=== PATIENT | female | born 1965 | race Caucasian/White ===

== ENCOUNTER → 2016-11-20 | Outpatient (CLI) | payer BC ==
[~2016-11-20] MED LIST: DIAZ5TAB3
--- NOTE | 2016-11-20 10:28 | Diagnostic Imaging Report ---
Left breast ultrasound. INDICATION: Nodule in the lateral aspect of the left breast. Findings: At 2:00 zone, 4 cm from the nipple there is a lobulated hypoechoic smoothly marginated mass wider than tall measuring 1.2 x 0.6 x 0.7 CM with no internal vascularity demonstrated. There is a minimal shadowing gas seen. This corresponds with the mammographic abnormality. IMPRESSION: Likely benign 1.2 cm hypoechoic nodule at 2:00 zone 4 cm from the nipple. This was seen on a baseline mammogram and no prior studies were available for comparison. Followup ultrasound in 4 months is recommended to ensure stability. BI-RADS 3. ACR BI-RADS Category 3: Probably benign findings. Dictated by: Dictated on workstation # [id number]
== END ==
LOC: RAD 08:40
PROVIDERS: ATTEND Family Medicine
DX: N63 Unspecified lump in breast (principal)
CPT/HCPCS: 76642

== ENCOUNTER 2017-01-02 14:06 | Emergency (ER) | payer BC ==
[~2017-01-02] VITALS: Ht 165.1 cm; Wt 154.7 kg
[2017-01-02] MEDS ORDERED: DIAZ5TAB3 (15:09)
--- NOTE | 2017-01-02 15:44 | ED General ---
General Chief Complaint: General Problems/Pain Stated Complaint: BLOOD TEST RESULT INDICATES D-DIMER/BLOOD CLOT Nursing Triage Note: pt reports she was called by her physicians nurse today about her d-dimer lab being high. pt reports she struggles with lymphedema in her bilateral legs and has some soa. pt denies any pain. Nursing Sepsis Screen: No Definite Risk Source of Information: Patient, Family Exam Limitations: No Limitations History of Present Illness Time Seen by Provider: 15:44 Initial Comments 51-year-old female patient presents to the emergency Department with reports of abnormal labs results today. States she was contacted by her PCP and instructed to come to the ED for an elevated D-Dimer. Patient reports chronic shortness of air, but denies increased shortness of air. Also reports chronic lymphedema to the proximal thighs bilaterally and states the swelling is similar to her usual swelling. denies chest pain, palpitations, fever, dizziness. Denies any acute symptoms. Denies pain. Allergies and Home Medications Allergies Coded Allergies: codeine (Verified Allergy, Unknown, 01/02/17) prochlorperazine (Verified Allergy, Unknown, 01/02/17) Home Medications Diazepam 5 Mg Tablet, (Reported) Constitutional: No chills, No diaphoresis, No dizziness, No fever, No malaise EENTM: no symptoms reported Respiratory: see HPI, No cough, dyspnea on exertion (chronic LUU, no different than usual LUU.), No orthopnea, phlegm (chronic clear sputum due to COPD per patient), short of breath (Chronic SOA, no different than usual symptoms.) Cardiovascular: No chest pain, edema (chronic edema bilaterally, similar to usual symptoms.), No palpitations, No syncope Gastrointestinal: no symptoms reported Genitourinary: no symptoms reported Musculoskeletal: no symptoms reported Skin: no symptoms reported Psychiatric/Neurological: No Symptoms Reported Hematologic/Lymphatic: No Symptoms Reported All Other Systems Reviewed Negative Unless Noted: Yes (Negative excepted noted.) Past Pozkkby-Wjphxg-Equamh Hx Patient Social History Alcohol Use: Denies Use Recreational Drug Use: No Smoking Status: Current Everyday Smoker Type Used: Cigarettes Recent Foreign Travel: No Contact w/Someone Who Travel: No Recent Infectious Disease Expo: No Physical Abuse: No Sexual Abuse: No Mistreated: No Fear: No Surgeries History of Surgeries: Yes Surgeries: Tonsillectomy Respiratory History of Respiratory Disorde: Yes Respiratory Disorders: Chronic Bronchitis Cardiovascular History of Cardiac Disorders: Yes Cardiac Disorders: Heart Murmur, High Cholesterol, Hypertension Neurological History of Neurological Disord: No Genitourinary History of Genitourinary Disor: Yes (chronic kidney dz ) Gastrointestinal History of Gastrointestinal Di: No Musculoskeletal History of Musculoskeletal Dis: No Endocrine History of Endocrine Disorders: Yes Endocrine Disorders: Hypothyroidsim HEENT History of HEENT Disorders: No Cancer History of Cancer: No Psychosocial History of Psychiatric Problem: No Suicide Risk Score: 0 Integumentary History of Skin or Integumenta: Yes (lymphedema) Blood Transfusions History of Blood Disorders: No Adverse Reaction to a Blood Tr: No Reviewed Nursing Assessment Reviewed/Agree w Nursing PMH: Yes Family Medical History Significant Family History: No Pertinent Family Hx Physical Exam Vital Signs Capillary Refill : Less Than 3 Seconds General Appearance: No Apparent Distress, WD/WN, Obese Eyes: Bilateral Eye Normal Inspection, Bilateral Eye PERRL, Bilateral Eye EOMI HEENT: PERRL/EOMI, Pharynx Normal Neck: Normal Inspection, Non Tender, Supple Respiratory: Chest Non Tender, No Accessory Muscle Use, No Respiratory Distress , Crackles, Expiration, Wheezing ((pt states "I always wheeze")) Cardiovascular: Regular Rate, Rhythm, No Murmur, Normal Peripheral Pulses, Other (3+ pedal edema bilat) Gastrointestinal: Normal Bowel Sounds, Non Tender, Soft Back: Normal Inspection Extremity: Normal Capillary Refill, Non Tender, No Calf Tenderness, Pedal Edema (3+ pedal edema bilat) Neurologic/Psychiatric: Alert, Oriented x3, Normal Mood/Affect Skin: Normal Color, Warm/Dry Progress/Results/Core Measures Results/Orders My Orders Medications Given in ED Vital Signs/I&O Blood Pressure Mean: 122 Diagnostic Imaging Diagonstic Imaging: CT Plain Films/CT/US/NM/MRI: chest Comments FINDINGS: The pulmonary arterial branches are widely patent. There is no intraluminal filling defect. There were no findings of PE. The thoracic aorta is patent and nonaneurysmal. There is no pleural or pericardial effusion. There is no pneumothorax. There are very slight perifissural atelectatic changes in the lung bases anteriorly, there are no findings suggestive of pneumonia. There is no acute soft tissue nor osseous chest wall pathology. The visualized upper abdomen nonacute. IMPRESSION: Negative for PE or other acute abnormalities. Dictated on workstation # [id number] Reviewed: Reviewed by Me (radiology report reviewed) Departure Communication (Admissions) Progress Notes All records including labs from earlier today reviewed from Dr. Hernandez's office. I did speak with Dr. Hernandez's [employer] who states patient CAN have the IV dye for the CT angio chest. I did discuss this with the patient. Patient voices understanding and states she wishes to proceed with CT angio chest. 1730 CT angio chest findings discussed with the patient. Plan for discharge to home with follow-up as an outpatient with Dr. Hernandez's office this week. Patient states she already has an appointment this week for follow-up. All return precautions were discussed with the patient as described in the discharge instructions of this report. Patient voices understanding and agrees with the treatment plan. Patient case discussed with Dr. Jang, he agrees with the plan of care. Impression Impression: Primary Impression: Abnormal laboratory test Additional Impressions: Chronic kidney disease (CKD) Qualified Codes: N18.9 - Chronic kidney disease, unspecified Chronic acquired lymphedema Disposition: HOME, SELF-CARE Condition: Improved Departure-Patient Inst. Decision time for Depature: 17:35 Referrals: DAYAMI HERNANDEZ DO (PCP/Family) Primary Care Physician Patient Instructions: Chronic Kidney Disease (DC) Add. Discharge Instructions: All discharge instructions reviewed with patient and/or family. Voiced understanding. Continue usual home medications. Continue usual home diet. Follow-up with Dr. Hernandez this week as previously scheduled. Return to the emergency department for worsened swelling, shortness of breath, chest pain, fever, or any other concerns. KULWINDER SCHUSTER Jan 02, 2017 15:44
[2017-01-02] MEDS ORDERED: CATHETER FLUSH 10 ML SYR IV PRN (16:00)
[2017-01-02] MEDS ORDERED: NS 100 ML (IVPB) BAG IV ONE (16:00)
[2017-01-02] MEDS ORDERED: IOHEXOL 350 MG/ML 150 ML (OMNIPAQUE 350) VIAL IV ONE (16:00)
--- NOTE | 2017-01-02 16:59 | Diagnostic Imaging Report ---
PROCEDURE: CT angiography of the chest with contrast. TECHNIQUE: Multiple contiguous axial images were obtained through the chest after uneventful bolus administration of intravenous contrast. Reconstructed CTA MIP acquisitions were also performed. INDICATION: Elevated d-dimer, cardiac murmur, valvular disease. FINDINGS: The pulmonary arterial branches are widely patent. There is no intraluminal filling defect. There were no findings of PE. The thoracic aorta is patent and nonaneurysmal. There is no pleural or pericardial effusion. There is no pneumothorax. There are very slight perifissural atelectatic changes in the lung bases anteriorly, there are no findings suggestive of pneumonia. There is no acute soft tissue nor osseous chest wall pathology. The visualized upper abdomen nonacute. IMPRESSION: Negative for PE or other acute abnormalities. Dictated by: Dictated on workstation # [id number]
[2017-01-02] MEDS ORDERED: NS IV 1000 ML 1,000 ML IV ONE (17:20)
[2017-01-02 17:51] VITALS: BP 140/74
== END 2017-01-02 17:51 | disposition home or self-care (01) ==
LOC: EDUNIT# 14:06 → ER 14:09
DX: R78.89 Finding of other specified substances, not normally found in blood (principal); I12.9 Hypertensive chronic kidney disease with stage 1 through stage 4 chronic kidney disease, or unspecified chronic kidney disease; N18.9 Chronic kidney disease, unspecified; I89.0 Lymphedema, not elsewhere classified; E03.9 Hypothyroidism, unspecified; E78.00 Pure hypercholesterolemia, unspecified; J42 Unspecified chronic bronchitis; F17.210 Nicotine dependence, cigarettes, uncomplicated; Z90.89 Acquired absence of other organs
CPT/HCPCS: 71275; 99281

== ENCOUNTER → 2017-01-13 | Outpatient (CLI) | payer BC ==
--- NOTE | 2017-01-13 16:06 | Diagnostic Imaging Report ---
INDICATION: Bilateral leg edema and pain and elevated d-dimer.. Bilateral lower extremity venous Doppler study was performed in the routine fashion with color flow Doppler and waveform analysis. FINDINGS: The common femoral veins, superficial femoral veins, popliteal veins and visualized portion of the tibial veins show normal compressibility and venous flow patterns. There is normal augmentation. Portions of the distal SFV were poorly seen on both sides due to body habitus. IMPRESSION: No evidence of deep vein thrombosis in the major veins of both legs. Dictated by: Dictated on workstation # [id number]
== END ==
LOC: RAD 14:42
PROVIDERS: ATTEND Family Medicine
DX: R60.0 Localized edema (principal); R79.89 Other specified abnormal findings of blood chemistry
CPT/HCPCS: 93970

== ENCOUNTER 2017-04-19 19:38 | Emergency (ER) | payer BC ==
[~2017-04-19] VITALS: Ht 165.1 cm; Wt 154.7 kg
[2017-04-19] MEDS ORDERED: BETA15CR37 (19:45)
[2017-04-19] MEDS ORDERED: GABA600T2 (19:45)
[2017-04-19] MEDS ORDERED: LEVO150T6 (19:45)
[2017-04-19] MEDS ORDERED: OMEP40CA36 (19:45)
[2017-04-19] MEDS ORDERED: BUDE10.2 (19:45)
[2017-04-19] MEDS ORDERED: CEPH500C (19:45)
[2017-04-19] MEDS ORDERED: FLUO40CA (19:45)
[2017-04-19] MEDS ORDERED: CARV12.53 (19:45)
[2017-04-19 20:12] LABS: BASOPHILS % (AUTO) 1 % (0-10); EOSINOPHILS # (AUTO) 0.2 10^3/uL (0.0-0.3); EOSINOPHILS % (AUTO) 7 % (0-10); LYMPHOCYTES % (AUTO) 29 % (12-44); MEAN CORPUSCULAR HEMOGLOBIN 30 PG (25-34); MEAN CORPUSCULAR HGB CONC 33 G/DL (32-36); MEAN CORPUSCULAR VOLUME 91 FL (80-99); MEAN PLATELET VOLUME 10.3 FL (7.4-10.4); MONOCYTES # (AUTO) 0.5 X 10^3 (0.0-1.0); MONOCYTES % (AUTO) 16 % (0-12); NEUTROPHILS # (AUTO) 1.6 X 10^3 (1.8-7.8); NEUTROPHILS % (AUTO) 48 % (42-75); PLATELET COUNT 148 10^3/uL (130-400); RED BLOOD COUNT 4.21 10^6/uL (4.35-5.85); RED CELL DISTRIBUTION WIDTH 16.1 % (10.0-14.5); WHITE BLOOD COUNT 3.3 10^3/uL (4.3-11.0)
[2017-04-19 20:13] LABS: PROTHROMBIN TIME PATIENT 12.9 SEC (12.2-14.7)
[2017-04-19 20:36] LABS: ALANINE AMINOTRANSFERASE 21 U/L (0-55); ALBUMIN 3.5 GM/DL (3.2-4.5); ALCOHOL 10 MG/DL (<10); AMMONIA 45 UMOL/L (11-32); ANION GAP 11 MMOL/L (5-14); ASPARTATE AMINO TRANSFERASE 36 U/L (5-34); BILIRUBIN,TOTAL 0.3 MG/DL (0.1-1.0); BLOOD UREA NITROGEN 39 MG/DL (7-18); BUN/CREATININE RATIO 14; CALCIUM 9.8 MG/DL (8.5-10.1); CARBON DIOXIDE 26 MMOL/L (21-32); CHLORIDE 97 MMOL/L (98-107); GFR ESTIMATED 18; GLUCOSE 86 MG/DL (70-105); MAGNESIUM 2.1 MG/DL (1.8-2.4); POTASSIUM 4.3 MMOL/L (3.6-5.0); SODIUM 134 MMOL/L (135-145); TOTAL PROTEIN 7.2 GM/DL (6.4-8.2)
[2017-04-19 20:40] LABS: ACETAMINOPHEN < 10 UG/ML (10-30)
[2017-04-19 20:42] LABS: BILIRUBIN,URINE NEGATIVE (NEGATIVE); KETONES,URINE NEGATIVE (NEGATIVE); LEUKOCYTE ESTERASE ,URINE NEGATIVE (NEGATIVE); NITRITE,URINE NEGATIVE (NEGATIVE); PH,URINE 6 (5-9); PROTEIN,URINE 2+ (NEGATIVE); UROBILINOGEN,URINE NORMAL (NORMAL)
[2017-04-19] MEDS ORDERED: NS IV 1000 ML 1,000 ML IV ONE (20:55)
--- NOTE | 2017-04-19 21:04 | Diagnostic Imaging Report ---
INDICATION: Confusion. EXAMINATION: CT head without contrast. FINDINGS: No intracranial hemorrhage, hydrocephalus, edema, mass or mass effect. The basilar cisterns are patent. The sulci are non-effaced. IMPRESSION: Negative. Dictated by: Dictated on workstation # [id number]
--- NOTE | 2017-04-19 21:06 | Diagnostic Imaging Report ---
INDICATION: Altered mental status FINDINGS: The lungs are clear. The heart and vessels normal. There is no effusion or pneumothorax. IMPRESSION: No acute appearing abnormality. Superimposition of body soft tissues limits the radiographic sensitivity. No acute finding evident. Dictated by: Dictated on workstation # [id number]
--- NOTE | 2017-04-19 21:10 | ED General ---
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 WHEN SHE DOES ANSWER QUESTIONS , THEY ARE APPROPRIATE AND PT DOES NOT APPEAR CONFUSED) History of Present Illness Time Seen by Provider: 19:38 Initial Comments PT ARRIVES VIA [facility] FROM HOME EMS REPORT THAT THEY WERE CALLED FOR "CONFUSION" X 3 DAYS EMS REPORT THAT THEY HAVE NOT SEEN ANY EVIDENCE OF CONFUSION AT ANY TIME DURING THEIR CARE OF THE PT TOLD THEM SHE " WAS TALKING OUT OF HER HEAD" FOR THE LAST 3 DAYS HE ALSO TOLD THEM SHE HAD NOT EATEN TODAY PT HAS CHRONIC CELLULITIS OF LEGS--PT STATES SHE HAD BEEN ON KEFLEX, BUT HAS BEEN OUT FOR 3-4 DAYS, AND HAS A PRESCRIPTION THAT IS TO BE REFILLED, BUT SHE HAS NOT PICKED IT UP FROM THE PHARMACY WHEN ASKED WHY SHE IS HERE, SHE STATES "BECAUSE MY SAYS I'M CRAZY" PT DOES NOT HAVE ANY ACUTE PHYSICAL COMPLAINTS ON ARRIVAL PCP; DR. HERNANDEZ WORDEN Allergies and Home Medications Allergies Coded Allergies: codeine (Verified Allergy, Unknown, 01/02/17) prochlorperazine (Verified Allergy, Unknown, 01/02/17) Home Medications Betamethasone/Propylene Glyc 15 Gm Cream..g., (Reported) Budesonide/Formoterol Fumarate 10.2 Gm Hfa.aer.ad, (Reported) Carvedilol 12.5 Mg Tablet, (Reported) Cephalexin 500 Mg Capsule, (Reported) Clindamycin HCl 300 Mg Capsule, 300 MG PO QID, #40 Prescribed by: FADY MARTINEZ on 04/19/172112 Diazepam 5 Mg Tablet, (Reported) Fluoxetine HCl 40 Mg Capsule, (Reported) Gabapentin 600 Mg Tablet, (Reported) Lactobacillus Acidophilus 1 Each Capsule, 2 EACH PO QID, #80 Prescribed by: FADY MARTINEZ on 04/19/172112 Levothyroxine Sodium 150 Mcg Tablet, (Reported) Omeprazole 40 Mg Capsule., (Reported) Constitutional: No fever Respiratory: No cough, dyspnea on exertion (CHRONIC/STABLE), No short of breath (CHRONIC SHORTNESS OF BREATH, BUT DENIES FEELING SHORT OF BREATH AT THIS TIME. ) Cardiovascular: No chest pain, edema (CHRONIC/STABLE) Gastrointestinal: No abdominal pain, No nausea, No vomiting Genitourinary: no symptoms reported Musculoskeletal: see HPI, other (CHRONIC LEG CELLULITIS) Skin: see HPI, other (CHRONIC LEG CELLULITIS) Psychiatric/Neurological: See HPI (BUT PT DOES NOT APPEAR CONFUSED), Denies Headache, Denies Numbness, Denies Paresthesia, Denies Seizure Hematologic/Lymphatic: No Symptoms Reported Immunological/Allergic: no symptoms reported Past Gbcqvoi-Khwsaa-Drdtzz Hx Patient Social History Alcohol Use: Denies Use Recreational Drug Use: No Smoking Status: Current Everyday Smoker Type Used: Cigarettes 2nd Hand Smoke Exposure: No Recent Foreign Travel: No Contact w/Someone Who Travel: No Recent Infectious Disease Expo: No Recent Hopitalizations: No Immunizations Up To Date Tetanus Booster (TDap): Unknown Seasonal Allergies Seasonal Allergies: Yes Surgeries History of Surgeries: Yes Surgeries: Tonsillectomy Respiratory History of Respiratory Disorde: Yes (CHRONIC DYSPNEA ON EXERTION) Respiratory Disorders: Chronic Bronchitis, COPD Cardiovascular History of Cardiac Disorders: Yes Cardiac Disorders: Chronic Edema/Swelling, Heart Murmur, High Cholesterol, Hypertension Neurological History of Neurological Disord: No Reproductive System : No 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 Genitourinary History of Genitourinary Disor: Yes (chronic kidney dz ) Genitourinary Disorders: Renal Failure Gastrointestinal History of Gastrointestinal Di: No Musculoskeletal History of Musculoskeletal Dis: Yes (CHRONIC LEG EDEMA/CELLULITIS) Endocrine History of Endocrine Disorders: Yes (MORBID OBESITY) Endocrine Disorders: Hypothyroidsim HEENT History of HEENT Disorders: No Cancer History of Cancer: No Psychosocial History of Psychiatric Problem: No Integumentary History of Skin or Integumenta: Yes (LYMPHEDEMA/ CHRONIC LEG EDEMA WITH CELLULITIS) Blood Transfusions History of Blood Disorders: No Adverse Reaction to a Blood Tr: No Family Medical History Significant Family History: No Pertinent Family Hx Physical Exam Vital Signs Vital Sign - Last 12Hours 04/19/17 19:45 Temp 97.7 Pulse 80 Resp 18 B/P (MAP) 133/89 (104) Pulse Ox 94 O2 Delivery Room Air Capillary Refill : Less Than 3 Seconds General Appearance: Obese (MORBIDLY), Other (FILTHY, VERY MALODOROUS. PT VERY LOUDLY TALKING NON-STOP AT LENGTH--COMPLAINING ABOUT EVERYTHING AND CONSTANTLY MAKING MULTIPLE DEMANDS, SINCE ARRIVAL, WHILE STILL ON EMS CART--WANTING BED ADJUSTED, C/O ROUGNESS OF TRANSFER FROM EMS CART TO ER CART, WANTING SOMETHING TO DRINK, ETC. ) HEENT: PERRL/EOMI, Other (ORAL MUCOSA SLIGHTLY DRY) Respiratory: Normal Breath Sounds, No Accessory Muscle Use, No Respiratory Distress Cardiovascular: Regular Rate, Rhythm Gastrointestinal: Non Tender, Soft Extremity: Other (LEGS WITH 4+ EDEMA BILATERALLY, WITH CHRONIC VENOUS STASIS CHANGES TO LEGS BILATERALLY, WITH CHRONIC -APPEARING ERYTHEMA TO LEGS BILATERALLY . DISTAL MOTOR/SENSORY INTACT, UNABLE TO PALPATE PULSES DUE TO EDEMA / BODY HABITUS, BUT FEET PINK/WARM/DRY. SOCKS FILTHYY. 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 Norm as Tested, Other (NO EVIDENCE OF CONFUSION, SPEECH IS APPROPRIATE AND ) Skin: Warm/Dry, Other (CHRONIC CHANGES TO BILATERAL LEGS) Progress/Results/Core Measures Suspected Sepsis Recent Fever Within 48 Hours: No Infection Criteria Present: Documented Infection New/Unexplained Altered Menta: Yes Sepsis Screen: No Definite Risk Sepsis Diagnosis: SIRS Temperature:97.7 Pulse: 80 Respiratory Rate: 18 Laboratory Tests 04/19/17 19:45: White Blood Count 3.3L Blood Pressure 133 /89 Mean: 104 Laboratory Tests 04/19/17 19:45: INR Comment 1.0, Platelet Count 148 04/19/17 20:08: Creatinine 2.80H, Total Bilirubin 0.3 Results/Orders Lab Results Laboratory Tests Test 04/19/17 19:45 04/19/17 20:08 04/19/17 20:13 04/19/17 20:30 Range/Units White Blood Count 3.3 L 4.3-11.0 10^3/uL Red Blood Count 4.21 L 4.35-5.85 10^6/uL Hemoglobin 12.5 11.5-16.0 G/DL Hematocrit 38 35-52 % Mean Corpuscular Volume 91 80-99 FL Mean Corpuscular Hemoglobin 30 25-34 PG Mean Corpuscular Hemoglobin Concent 33 32-36 G/DL Red Cell Distribution Width 16.1 H 10.0-14.5 % Platelet Count 148 130-400 10^3/uL Mean Platelet Volume 10.3 7.4-10.4 FL Neutrophils (%) (Auto) 48 42-75 % Lymphocytes (%) (Auto) 29 12-44 % Monocytes (%) (Auto) 16 H 0-12 % Eosinophils (%) (Auto) 7 0-10 % Basophils (%) (Auto) 1 0-10 % Neutrophils # (Auto) 1.6 L 1.8-7.8 X 10^3 Lymphocytes # (Auto) 1.0 1.0-4.0 X 10^3 Monocytes # (Auto) 0.5 0.0-1.0 X 10^3 Eosinophils # (Auto) 0.2 0.0-0.3 10^3/uL Basophils # (Auto) 0.0 0.0-0.1 10^3/uL Prothrombin Time 12.9 12.2-14.7 SEC INR Comment 1.0 0.8-1.4 Activated Partial Thromboplast Time 34 24-35 SEC Sodium Level 134 L 135-145 MMOL/L Potassium Level 4.3 3.6-5.0 MMOL/L Chloride Level 97 L 98-107 MMOL/L Carbon Dioxide Level 26 21-32 MMOL/L Anion Gap 11 5-14 MMOL/L Blood Urea Nitrogen 39 H 7-18 MG/DL Creatinine 2.80 H 0.60-1.30 MG/DL Estimat Glomerular Filtration Rate 18 BUN/Creatinine Ratio 14 Glucose Level 86 70-105 MG/DL Calcium Level 9.8 8.5-10.1 MG/DL Magnesium Level 2.1 1.8-2.4 MG/DL Total Bilirubin 0.3 0.1-1.0 MG/DL Aspartate Amino Transf (AST/SGOT) 36 H 5-34 U/L Alanine Aminotransferase (ALT/SGPT) 21 0-55 U/L Alkaline Phosphatase 91 40-136 U/L Ammonia 45 H 11-32 UMOL/L Total Protein 7.2 6.4-8.2 GM/DL Albumin 3.5 3.2-4.5 GM/DL TSH [place] Testing 0.73 0.35-4.94 UIU/ML Acetaminophen Level < 10 L 10-30 UG/ML Serum Alcohol 10 <10 MG/DL Glucometer 81 70-110 MG/DL Urine Color YELLOW Urine Clarity CLEAR Urine pH 6 5-9 Urine Specific [place] 1.015 L 1.016-1.022 Urine Protein 2+ H NEGATIVE Urine Glucose (UA) NEGATIVE NEGATIVE Urine Ketones NEGATIVE NEGATIVE Urine Nitrite NEGATIVE NEGATIVE Urine Bilirubin NEGATIVE NEGATIVE Urine Urobilinogen NORMAL NORMAL MG/DL Urine Leukocyte Esterase NEGATIVE NEGATIVE Urine RBC (Auto) 3+ H NEGATIVE Urine RBC 2-5 H /HPF Urine WBC NONE /HPF Urine Squamous Epithelial Cells 2-5 /HPF Urine Crystals NONE /LPF Urine Bacteria NONE /HPF Urine Casts NONE /LPF Urine Mucus NEGATIVE /LPF Urine Culture Indicated NO Urine Opiates Screen NEGATIVE NEGATIVE Urine Oxycodone Screen NEGATIVE NEGATIVE Urine Methadone Screen NEGATIVE NEGATIVE Urine Propoxyphene Screen NEGATIVE NEGATIVE Urine Barbiturates Screen NEGATIVE NEGATIVE Ur Tricyclic Antidepressants Screen NEGATIVE NEGATIVE Urine Phencyclidine Screen NEGATIVE NEGATIVE Urine Amphetamines Screen NEGATIVE NEGATIVE Urine Methamphetamines Screen NEGATIVE NEGATIVE Urine Benzodiazepines Screen POSITIVE H NEGATIVE Urine Cocaine Screen NEGATIVE NEGATIVE Urine Cannabinoids Screen NEGATIVE NEGATIVE My Orders Orders - FADY MARTINEZ DO Accucheck Stat ONCE (04/19/17 19:43) Saline Lock/Iv-Start (04/19/17 19:43) Ekg Tracing (04/19/17 19:43) Monitor-Rhythm Ecg Trace Only (04/19/17 19:43) Ct Head Wo-R/O Stroke (04/19/17 19:43) Acetaminophen (04/19/17 19:43) Alcohol (04/19/17 19:43) Ammonia (04/19/17 19:43) Cbc With Automated Diff (04/19/17 19:43) Comprehensive Metabolic Panel (04/19/17 19:43) Drug Screen Stat (Urine) (04/19/17 19:43) Magnesium (04/19/17 19:43) Protime With Inr (04/19/17 19:43) Partial Thromboplastin Time (04/19/17 19:43) Thyroid Analyzer (04/19/17 19:43) Ua Culture If Indicated (04/19/17 19:43) Blood Culture (04/19/17 19:43) Chest 1 View, Ap/Pa Only (04/19/17 19:43) Catheter(Urinary) Insert & Ass 03,15 (04/19/17 20:17) Saline Lock/Iv-Start (04/19/17 20:55) Ns Iv 1000 Ml (Sodium Chloride 0.9%) (04/19/17 20:55) Clindamycin Injection (Cleocin Injection (04/19/17 21:15) Clindamycin Injection (Cleocin Injection (04/19/17 21:11) Ns (Ivpb) (Sodium Chloride 0.9% Ivpb Bag (04/19/17 21:12) Medications Given in ED Current Medications Medications Dose Ordered Sig/Delmis Route Start Time Stop Time Status Last Admin Dose Admin Clindamycin Phosphate 900 mg/ Sodium Chloride 56 ml @ 100 mls/hr ONCE ONCE IV 04/19/17 21:15 04/19/17 21:48 DC 04/19/17 21:16 100 MLS/HR Sodium Chloride 1,000 ml @ 0 mls/hr Q0M ONCE IV 04/19/17 20:55 04/19/17 21:16 DC 04/19/17 21:03 0 MLS/HR Vital Signs/I&O Vital Sign - Last 12Hours 04/19/17 04/19/17 19:45 21:56 Temp 97.7 97.9 Pulse 80 75 Resp 18 15 B/P (MAP) 133/89 (104) Pulse Ox 94 98 O2 Delivery Room Air Room Air Capillary Refill : Less Than 3 Seconds Blood Pressure Mean: 104 Point of Care Testing Finger Stick Blood Glucose: 81 Blood Glucose Action Taken: RN AND DR NOTIFIED Progress Note : Progress Note NO DETERIORATION IN PT'S CONDITION DURING ER STAY NO EVIDENCE OF CONFUSION AT ANY TIME. PT COMFORTABLE GOING HOME, AND HAS NO COMPLAINTS DURING ER STAY Diagnostic Imaging Comments CT HEAD--NO ACUTE PROCESS CXR--NO ACUTE PROCESS PER RADIOLOGIST REPORTS @ 2105 Reviewed: Reviewed by Me Departure Impression Impression: Primary Impression: CHRONIC CELLULITIS OF BILATERAL LEGS Additional Impressions: Chronic renal failure Morbid obesity Disposition: 01 HOME, SELF-CARE Condition: Stable Departure-Patient Inst. Referrals: DAYAMI HERNANDEZ DO (PCP/Family) Primary Care Physician Patient Instructions: Cellulitis (Skin Infection), Adult (DC) Add. Discharge Instructions: CONTINUE YOUR CURRENT MEDICATIONS FOLLOW UP WITH DR. HERNANDEZ IN 2-3 DAYS FOR FURTHER CARE All discharge instructions reviewed with patient and/or family. Voiced understanding. Scripts Clindamycin HCl (Clindamycin HCl) 300 Mg Capsule 300 MG PO QID for FOR INFECTION, #40 CAP Prov: FADY MARTINEZ DO 04/19/17 Lactobacillus Acidophilus (Acidophilus) 1 Each Capsule 2 EACH PO QID, #80 CAP Prov: MICHELLE,FADY K DO 04/19/17 FADY MARTINEZ DO Apr 19, 2017 21:10
[2017-04-19] MEDS ORDERED: CLINDAMYCIN 600 MG/4ML (CLEOCIN) VIAL ONE (21:11)
[2017-04-19] MEDS ORDERED: NS (IVPB) 50 ML ONE (21:12)
[2017-04-19] MEDS ORDERED: LACT1CAP8 PO (21:13)
[2017-04-19] MEDS ORDERED: CLIN300C11 PO (21:13)
[2017-04-19] MEDS ORDERED: CLINDAMYCIN INJECTION 900 MG in NS (IVPB) 50 ML IV ONE (21:15)
[2017-04-19 21:56] VITALS: BP 116/66
== END 2017-04-19 21:56 | disposition home or self-care (01) ==
LOC: EDUNIT# 19:38 → ER 19:40
DX: L03.115 Cellulitis of right lower limb (principal); L03.116 Cellulitis of left lower limb; I12.9 Hypertensive chronic kidney disease with stage 1 through stage 4 chronic kidney disease, or unspecified chronic kidney disease; N18.9 Chronic kidney disease, unspecified; E66.01 Morbid (severe) obesity due to excess calories; J44.9 Chronic obstructive pulmonary disease, unspecified; E78.00 Pure hypercholesterolemia, unspecified; E03.9 Hypothyroidism, unspecified; F17.210 Nicotine dependence, cigarettes, uncomplicated; Z90.89 Acquired absence of other organs; Z68.43 Body mass index [BMI] 50.0-59.9, adult
CPT/HCPCS: 36415; 51702; 70450; 71010; 80053; 80306; 80320; 80329; 81000; 82140; 82962; 83735; 84443; 85025; 85610; 85730; 87040; 93005; 93041; 96361; 96365

== ENCOUNTER 2017-06-02 13:00 | Outpatient (RCR) | payer BC ==
[2017-06-05 13:06] LABS: BILIRUBIN,URINE NEGATIVE (NEGATIVE); CLARITY,URINE SLIGHTLY CLOUDY; COLOR,URINE AMBER; GLUCOSE, URINE (UA) NEGATIVE (NEGATIVE); KETONES,URINE NEGATIVE (NEGATIVE); LEUKOCYTE ESTERASE ,URINE 1+ (NEGATIVE); NITRITE,URINE NEGATIVE (NEGATIVE); PH,URINE 6 (5-9); PROTEIN,URINE NEGATIVE (NEGATIVE); UROBILINOGEN,URINE 1 MG/DL (NORMAL)
[2017-06-05 13:21] LABS: BACTERIA,URINE NEGATIVE /HPF; CALCIUM OXALATE CRYSTALS,UR FEW /LPF; RBC,URINE RARE /HPF; WBC,URINE 0-2 /HPF
== END 2017-08-31 | disposition home or self-care (01) ==
LOC: LAB 13:00
PROVIDERS: ATTEND Internal Medicine Nephrology
DX: I89.0 Lymphedema, not elsewhere classified (principal); N18.3 Chronic kidney disease, stage 3 (moderate)
CPT/HCPCS: 81000; 82570; 84156

== ENCOUNTER → 2017-06-02 | Outpatient (CLI) | payer BC ==
[~2017-06-02] MED LIST changes: +BETA15CR37; +BUDE10.2; +CARV12.53; +CEPH500C; +CLIN300C11 PO; +FLUO40CA; +GABA600T2; +LACT1CAP8 PO; +LEVO150T6; +OMEP40CA36
--- NOTE | 2017-06-02 14:00 | Diagnostic Imaging Report ---
INDICATION: Acute renal failure. FINDINGS: The right kidney measures 10.0 x 3.6 x 6.3 cm and the left kidney measures 10.5 x 4.4 x 4.4 cm. There does appear to be cortical renal thinning bilaterally. No calculi are seen. There is no hydronephrosis. Partially filled urinary bladder is unremarkable although ureteral jets were not visualized. Note is made of multiple stones within the gallbladder. No bladder wall does appear to be slightly thickened at 5 mm. IMPRESSION: 1. Bilateral cortical renal thinning. 2. Cholelithiasis and mild gallbladder wall thickening. Acute cholecystitis cannot be entirely excluded. Dictated by: Dictated on workstation # [id number]
--- NOTE | 2017-06-02 14:09 | Diagnostic Imaging Report ---
INDICATION: Acute renal failure. FINDINGS: Imaging of the bladder was performed. Prevoid bladder volume is 102 mL. Post void volume is 90 mL. No definite wall thickening or mass is seen. IMPRESSION: Small postvoid residual bladder volume. Dictated by: Dictated on workstation # [id number]
[2017-06-02 14:20] LABS: BASOPHILS % (AUTO) 0 % (0-10); EOSINOPHILS # (AUTO) 0.1 10^3/uL (0.0-0.3); EOSINOPHILS % (AUTO) 1 % (0-10); HEMATOCRIT 40 % (35-52); HEMOGLOBIN 12.9 G/DL (11.5-16.0); LYMPHOCYTES # (AUTO) 1.5 X 10^3 (1.0-4.0); LYMPHOCYTES % (AUTO) 20 % (12-44); MEAN CORPUSCULAR HEMOGLOBIN 29 PG (25-34); MEAN CORPUSCULAR HGB CONC 32 G/DL (32-36); MEAN CORPUSCULAR VOLUME 91 FL (80-99); MONOCYTES # (AUTO) 0.6 X 10^3 (0.0-1.0); MONOCYTES % (AUTO) 8 % (0-12); NEUTROPHILS # (AUTO) 5.5 X 10^3 (1.8-7.8); NEUTROPHILS % (AUTO) 71 % (42-75); PLATELET COUNT 262 10^3/uL (130-400); RED BLOOD COUNT 4.41 10^6/uL (4.35-5.85); WHITE BLOOD COUNT 7.8 10^3/uL (4.3-11.0)
[2017-06-02 14:40] LABS: ALBUMIN 3.8 GM/DL (3.2-4.5); CALCIUM 9.9 MG/DL (8.5-10.1); CREATININE SERUM 1.03 MG/DL (0.60-1.30); PHOSPHORUS 2.9 MG/DL (2.3-4.7); POTASSIUM 4.3 MMOL/L (3.6-5.0); URIC ACID 5.7 MG/DL (2.6-7.2)
== END ==
LOC: RAD 10:52
PROVIDERS: ATTEND Internal Medicine Nephrology
DX: N17.9 Acute kidney failure, unspecified (principal); K80.20 Calculus of gallbladder without cholecystitis without obstruction; N28.89 Other specified disorders of kidney and ureter; K82.8 Other specified diseases of gallbladder; N39.43 Post-void dribbling; I10 Essential (primary) hypertension
CPT/HCPCS: 36415; 76770; 76857; 80069; 82306; 83970; 84550; 85025; 93306

== ENCOUNTER → 2017-06-02 | Outpatient (CLI) | payer BC | LOC: RAD 10:46 | PROVIDERS: ATTEND Internal Medicine Cardiovascular Disease | DX: Z53.8 Procedure and treatment not carried out for other reasons (principal); I35.1 Nonrheumatic aortic (valve) insufficiency; I12.9 Hypertensive chronic kidney disease with stage 1 through stage 4 chronic kidney disease, or unspecified chronic kidney disease; N18.3 Chronic kidney disease, stage 3 (moderate); G47.33 Obstructive sleep apnea (adult) (pediatric); R55 Syncope and collapse ==

== ENCOUNTER → 2017-07-28 | Outpatient (CLI) | payer BC ==
--- NOTE | 2017-07-28 14:16 | Diagnostic Imaging Report ---
INDICATION: Vaginal bleeding. Transabdominal and transvaginal pelvic sonography was performed. FINDINGS: The uterus measures 6.6 x 3.7 x 3.5 cm. No myometrial mass is identified. Endometrium is mildly thickened at 10 mm. The ovaries were not visualized due to overlying bowel gas. No adnexal mass or free fluid is seen. IMPRESSION: Mildly thickened endometrium of 10 mm. No other significant abnormality is detected. Dictated by: Dictated on workstation # [id number]
== END ==
LOC: RAD 12:46
PROVIDERS: ATTEND Family Medicine
DX: N93.9 Abnormal uterine and vaginal bleeding, unspecified (principal); R93.8 Abnormal findings on diagnostic imaging of other specified body structures
CPT/HCPCS: 76830; 76856

== ENCOUNTER 2018-04-28 17:36 | Emergency (ER) | payer BC ==
[~2018-04-28] VITALS: Ht 165.1 cm; Wt 154.7 kg
[~2018-04-28 17:36] MED LIST changes: -GABA600T2; +GBPN600T
[2018-04-28] MEDS ORDERED: ATROPINE INJECTION 1 MG/10 ML SYR (ABBOTT) INJ ONE (17:38)
[2018-04-28] MEDS ORDERED: EPINEPHrine INJECTION 1 MG/ML AMP IJ ONE (17:38)
[2018-04-28] MEDS ORDERED: SODIUM BICARB 8.4% 50 MEQ/50 ML (ABBOTT) SYR INJ ONE (17:38)
--- NOTE | 2018-04-28 17:40 | NUR ---
SA02 89% ROOM AIR PLACED ON NC 3L.
[2018-04-28] MEDS ORDERED: RT-ALBUTEROL/IPRATROPIUM 3 ML (DUONEB) VIAL INH ONE (18:00)
--- NOTE | 2018-04-28 18:00 | NUR ---
DR MARTINEZ TO ROOM ORDER FOR RT AND PLACE ON BI PAP
--- NOTE | 2018-04-28 18:13 | ED General ---
General Chief Complaint: Neurological Problems Stated Complaint: PAIN Source of Information: Old Records (ALL PMH IS FROM OLD RECORDS, PT IS OBTUNDED AND NO FAMILY ARE PRESENT. ) Exam Limitations: Other (PT NOT TALKING. NO ONE HERE WITH PT, PT ARRIVED PRIOR TO MY ARRIVAL) History of Present Illness Date Seen by Provider: Apr 28, 2018 Time Seen by Provider: 17:50 Initial Comments PT ARRIVED VIA EMS PRIOR TO MY ARRIVAL ALL INFORMATION IS OBTAINED FROM RN PT IS WELL KNOWN TO EMS FOR FALLS AND NEEDING LIFT ASSIST, PT IS MORBIDLY OBESE TODAY WHEN THEY WERE CALLED, PT WAS ESSENTIALLY UNRESPONSIVE PT WITH O2 SAT 89% ON ROOM AIR PT COVERED IN FECES EMS REPORT THAT PT DID C/O BACK PAIN WITH BUMPS IN ROAD, ON THE WAY HERE. OTHERWISE HAS NOT VERBALIZED ANYTHING AND HAS BEEN OTHERWISE UNRESPONSIVE. NO OTHER INFORMATION IS OBTAINABLE ON ARRIVAL. NO FAMILY HERE WITH PT. SON AND WERE AT THE HOME WHEN EMS WERE THERE. PCP: DR. HERNANDEZ Allergies and Home Medications Allergies Coded Allergies: codeine (Verified Allergy, Unknown, 01/02/17) prochlorperazine (Verified Allergy, Unknown, 01/02/17) Home Medications Clindamycin HCl 300 Mg Capsule, 300 MG PO QID Prescribed by: FADY MARTINEZ on 04/19/172112 Lactobacillus Acidophilus 1 Each Capsule, 2 EACH PO QID Prescribed by: FADY MARTINEZ on 04/19/172112 Patient Home Medication List Home Medication List Reviewed: Yes Review of Systems Review of Systems Constitutional: other (UNABLE TO OBTAIN) Past Upsuxzg-Bmhdeb-Bpfzgc Hx Patient Social History Smoking Status: Current Everyday Smoker Type Used: Cigarettes 2nd Hand Smoke Exposure: No Recent Foreign Travel: No Contact w/Someone Who Travel: No Recent Hopitalizations: No Immunizations Up To Date Tetanus Booster (TDap): Unknown Seasonal Allergies Seasonal Allergies: Yes Past Medical History Surgeries: Yes Tonsillectomy Respiratory: Yes (CHRONIC DYSPNEA ON EXERTION) Chronic Bronchitis, COPD Cardiac: Yes Chronic Edema/Swelling, Heart Murmur, High Cholesterol, Hypertension 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 oz. 154.550026yg; BMI Method:Stated General Appearance: Obese, Severe Distress, Other (PT IS MORBIDLY OBESE, OBTUNDED, WITH GURGLING AND SNOROUS RESPIRATIONS--UNABLE TO HANDLE SECRETIONS. PT COMPLETELY OBTUNDED ON ARRIVAL-NO RESPONSE TO IV STICKS, AND VERY MINIMAL ROUSAL WITH VERBAL AND TACTILE STIMULI. PT REEKS OF CIGARETTES AND IS COVERED IN FECES. ) HEENT: Other ( ABOVE--NO GAG REFLEX, UNABLE TO HANDLE SECRETIONS) Respiratory: Other (MINIMAL AERATION / MINIMAL RESPIRATORY EFFORT, WITH GURGLING AND SNOROUS RESPIRATIONS. ) Cardiovascular: Regular Rate, Rhythm Extremity: Other (CHRONIC VENOUS STASIS CHANGES BILATERALLY--UNABLE TO DETERMINE IF EDEMA IS PRESENT DUE TO BODY HABITUS. ) Neurologic/Psychiatric: Other (OBTUNDED. MINIMALLY RESPONSIVE TO VERBAL AND TACTILE STIMULI. DOES NOT RESPOND WITH IV STICKS. ) Skin: Normal Color, Warm/Dry, Other (EXTENSIVE SORES/SCABS/SCARS TO ARMS AND DORSUM OF HANDS. ) Procedures/Interventions Intubation Method: orotracheal Tube Size: 7.5 Medications: Fentanyl, Rocuronium, Succinylcholine, Versed Positive End Tide CO2: Yes Breath Sounds after Intubation: bilateral-equal Intubation Complications: no complications Post Intubation Xray: Yes ADEQUATE PLACEMENT IN TRACHEA. 1854--ÁLVARO STEWART HERE TO INTUBATE PT Progress/Results/Core Measures Suspected Sepsis SIRS Temperature: Pulse: Respiratory Rate: Blood Pressure / Mean: Results/Orders Lab Results My Orders Vital Signs/I&O Capillary Refill : Point of Care Testing Finger Stick Blood Glucose: 122 Blood Glucose Action Taken: rn notified Progress Note : Progress Note 02 SAT 89% ON ARRIVAL. PT PLACED ON SIMPLE MASK AND SUCTIONED AND O2 SATS UP TO 96% RT HERE AND PLACED ON BIPAP--DID IMPROVE SOME BUT NO IMPROVEMENT IN MENTATION, SO OPT TO INTUBATE. WILL HAVE ANESTHESIA HERE PT WILL LIKELY BE A DIFFICULT INTUBATION DUE TO BODY HABITUS. 1854--ÁLVARO STEWART HERE TO INTUBATE PT 1914--SON ARRIVES, AND AFTER BRIEF DISCUSSION, HE IS ADVISED THAT SHOULD BE HERE IF POSSIBLE, PT IS NOT ABLE TO MAKE DECISIONS FOR HERSELF AT THIS TIME. SON REPORTS THAT DOES NOT DRIVE AND IS DISABLED. HE REPORTS THAT PT HAS "HEART PROBLEMS", THYROID PROBLEMS, LEG INFECTIONS AND LYMPHEDEMA. HISTORY BEYOND THAT IS UNKNOWN TO HIM. 2044-- IS HERE WITH SON. HE STATES SHE FELL AT 0900 TODAY, BUT FOR UNKNOWN REASONS LAID ON FLOOR ALL DAY BEFORE CALLING EMS. HE REPORTS THAT SHE WAS TALKING AT HOME BEFORE EMS ARRIVED. ECG Initial ECG Impression Date: Apr 28, 2018 Initial ECG Impression Time: 18:29 Initial ECG Rate: 88 Initial ECG Rhythm: Normal Sinus Initial ECG Impression: Nonspecific Changes EKG : EKG Time: 22:59 Rate: 108 Rhythm: S.Tach Diagnostic Imaging Comments CT HEAD--NO ACUTE PROCESS, PER RADIOLOGIST REPORT AT 2020 CXR--RIGHT SIDED PULMONARY OPACITIES , PNEUMONIA VS CONTUSION, MILD LEFT BASILAR ATELECTASIS, CARDIOMEGALY. ET TUBE AND NG TUBE IN PROPER PLACEMENT--PER RADIOLOGIST REPORT AT 2044 Reviewed: Reviewed by Me Critical Care Note Critical Care Total Time (minutes) IN EXCESS OF 120 MINUTES Departure Communication (Admissions) 2029--SPOKE WITH DR. EDWARDS, HOSPITALIST. SHE ADVISES TRANSFER NO MUSIC SPECIALIST IS AVAILABLE AT THIS TIME, AND DUE TO CRITICAL NATURE OF PT'S CONDITION. 2048--CALLED YANNICK NORRIS, PT'S 'S PREFERENCE. MESSAGE LEFT ON MACHINE 2102--SPOKE WITH YANNICK NORRIS, DR. PATEL HAS ACCEPTED PT FOR ADMIT/TRANSFER. 2199--EMS HERE. 2226--EMS IS LEAVING WITH PT. 2244--PT CODED IN AMBULANCE, THEY WERE LOADING HER. --HR 20 ON MONITOR, UNABLE TO OBTAIN BLOOD PRESSURE OR PULSE, PT IS CYANOTIC. EMS BROUGHT PT BACK INTO ER AND HAS PEA ON MONITOR. CPR INITIATED AND PT WAS BAGGED. PT WAS GIVEN 2 EPINEPHRINE AND 2 ATROPINE WITH ROSC. I/O ACCESS OBTAINED IN RIGHT TIBIA, IV IN LEFT AC WAS LOST. PT STILL HAS IV ACCESS IN RIGHT UPPER ARM. ET TUBE DOES NOT APPEAR TO BE DISPLACED, AND LUNG SOUNDS ARE EQUAL WITH BAGGING. 2299--[facility] NOW CONTACTED FOR TRANSPORT 2304--[facility] IS NOT FLYING DUE TO WEATHER. 2304--CALLED YANNICK NORRIS AND SPOKE WITH ER PHYSICIAN AND UPDATE IN PT'S CONDITION GIVEN. NO ADDITIONAL RECOMMENDATIONS MADE. PT WAS TAKEN BACK OUT INTO AMBULANCE AND PLACED BACK ON THEIR PORTABLE VENT, AND PT BEGAN TO HAVE EXACT SAME ISSUES--HEART RATE DROPPING INTO40'S, AND O2 SAT DROPPING INTO 70'S. PT WAS IMMEDIATELY REMOVED FROM PORTABLE VENT AND MANUALLY BAGGED, WITH RAPID IMPROVEMENT IN HEART RATE-UP TO 80'S, AND O2 SAT UP TO 98%. LUNGS SOUNDS ARE EQUAL WITH BAGGING, AND ET TUBE DOES NOT APPEAR TO BE DISPLACED. Impression Primary Impression: Severe sepsis Additional Impressions: UTI (urinary tract infection) Acute respiratory failure Status post fall RIGHT SIDED PNEUMONIA VS PULMONARY CONTUSION Altered mental status Morbid obesity Disposition: 02 XFER SHT-TRM HOSP Condition: Stable Transfer Transfer Facility: [facility] Method of Transfer: EMS Departure-Patient Inst. Referrals: DAYAMI HERNANDEZ DO (PCP/Family) Primary Care Physician FADY MARTINEZ DO Apr 28, 2018 18:13
[2018-04-28 18:14] LABS: BASOPHILS % (AUTO) 0 % (0-10); EOSINOPHILS % (AUTO) 0 % (0-10); HEMATOCRIT 44 % (35-52); HEMOGLOBIN 14.4 G/DL (11.5-16.0); LYMPHOCYTES # (AUTO) 0.6 X 10^3 (1.0-4.0); LYMPHOCYTES % (AUTO) 5 % (12-44); MEAN CORPUSCULAR HEMOGLOBIN 31 PG (25-34); MEAN CORPUSCULAR HGB CONC 33 G/DL (32-36); MEAN CORPUSCULAR VOLUME 94 FL (80-99); MEAN PLATELET VOLUME 8.6 FL (7.4-10.4); MONOCYTES # (AUTO) 1.1 X 10^3 (0.0-1.0); MONOCYTES % (AUTO) 8 % (0-12); NEUTROPHILS # (AUTO) 11.5 X 10^3 (1.8-7.8); NEUTROPHILS % (AUTO) 87 % (42-75); PLATELET COUNT 268 10^3/uL (130-400); RED BLOOD COUNT 4.66 10^6/uL (4.35-5.85); RED CELL DISTRIBUTION WIDTH 16.5 % (10.0-14.5); WHITE BLOOD COUNT 13.3 10^3/uL (4.3-11.0)
[2018-04-28 18:24] LABS: INR 1.1 (0.8-1.4); PROTHROMBIN TIME PATIENT 14.6 SEC (12.2-14.7)
[2018-04-28 18:30] LABS: BAND NEUTROPHILS 11 %; BASOPHILS % (MANUAL) 0 %; EOSINOPHILS % (MANUAL) 0 %; LYMPHOCYTES % (MANUAL) 7 %; MONOCYTES % (MANUAL) 8 %; NEUTROPHILS % (MANUAL) 74 %
[2018-04-28 18:31] LABS: RBC MORPH NORMAL
[2018-04-28 18:32] LABS: ALANINE AMINOTRANSFERASE 17 U/L (0-55); ALBUMIN 3.7 GM/DL (3.2-4.5); ALKALINE PHOSPHATASE 111 U/L (40-136); AMYLASE 29 U/L (25-125); BILIRUBIN,TOTAL 1.3 MG/DL (0.1-1.0); BUN/CREATININE RATIO 13; CALCIUM 10.4 MG/DL (8.5-10.1); CARBON DIOXIDE 26 MMOL/L (21-32); CHLORIDE 97 MMOL/L (98-107); CREATINE KINASE 528 U/L (29-168); GFR ESTIMATED 36; GLUCOSE 121 MG/DL (70-105); LIPASE 20 U/L (8-78); MAGNESIUM 1.8 MG/DL (1.8-2.4); POTASSIUM 4.3 MMOL/L (3.6-5.0); SALICYLATE < 5.0 MG/DL (5.0-20.0); SODIUM 133 MMOL/L (135-145); TOTAL PROTEIN 7.2 GM/DL (6.4-8.2)
[2018-04-28 18:37] LABS: ACETAMINOPHEN < 10 UG/ML (10-30)
--- NOTE | 2018-04-28 18:43 | NUR ---
2ND IV STARTED R CHEST WALL #20 BY Gallo OLIVIER RN.
[2018-04-28] MEDS ORDERED: ROCURONIUM 10 MG/ML 5 ML SYRINGE IV ONE (18:47)
[2018-04-28] MEDS ORDERED: fentaNYL INJECTION 100 MCG/2 ML AMP INJ ONE (18:47)
[2018-04-28] MEDS ORDERED: MIDAZOLAM 5 MG/5 ML (VERSED) VIAL INJ ONE (18:47)
[2018-04-28] MEDS ORDERED: SUCCINYLCHOLINE INJ 100 MG/5 ML SYR INJ ONE (18:47)
--- NOTE | 2018-04-28 18:47 | NUR ---
50MCG OF FENTANYL 5MG OF VERSED 1848 100MG OF SUCCICYLCHOLINE 1848 50MG ROCURONIUM 1850 50MG ROCRONIUM 1851 5 MG OF VERSED 1851 100MG OF SUCCIICYCHOLINE. 1853 89HR R 18 96 BAG MASK B/P 102/81 1855 PAT DEVELOPER PROGRAMMER ANALYST IS HERE 1856 ET PLACED BY PAT DEVELOPER PROGRAMMER ANALYST 7.5 20 AT THE LIP
[2018-04-28 18:54] LABS: TSH (THYROID ANALYZER) 0.77 UIU/ML (0.35-4.94)
[2018-04-28 18:55] LABS: ABG BASE EXCESS 3.9 MMOL/L (-2.5-2.5); ABG OXYGEN SATURATION 93 % (94-100); ABG PCO2 62 MMHG (35-45); ABG PO2 72 MMHG (79-93); ALLENS TEST YES-POS; INSPIRED O2 15L; PATIENT TEMP 96.9; VENTILATOR NO
[2018-04-28] MEDS ORDERED: PROPOFOL DRIP (ICU) 100 ML IV ONE ×2 (18:55→22:03)
--- NOTE | 2018-04-28 18:55 | NUR ---
MOTHER WAS NOTIFIED THAT PATIENT IN ED AND THAT SHE HAD PLACED ON VENT.
--- NOTE | 2018-04-28 19:00 | NUR ---
DIPVAN DRIP STARTED. 40MCG
--- NOTE | 2018-04-28 19:01 | NUR ---
OG PLACED BY TANIA #16
[2018-04-28 19:02] LABS: CREATINE KINASE MB 7.7 NG/ML (<6.6); MYOGLOBIN SERUM 2411.7 NG/ML (10.0-92.0)
[2018-04-28 19:08] VITALS: BP 95/65
--- NOTE | 2018-04-28 19:10 | NUR ---
REPORT TO TANIA
--- NOTE | 2018-04-28 19:15 | Anesthesia-Procedure Note ---
Procedures/Interventions Procedure Start/Stop/Diagnosis Date of Procedure: Apr 28, 2018 Start Time: 18:52 Referring Physician: Jean Claude Preprocedural Diagnosis: Respiratory distress Brief History Called to ED urgently for intubation on 53 yo Fe found down at home, unable to control secretions. On arrival to ED 8, CHRISTA Haney attempting to intubate and Dr. Silverio assisting. Unable to pass ett. I placed a 7.5 ett with the Ambrocio xblade easily, grade 1 view. VC intact and moving; however, patient tolerated intubation well. Confirmed ett with color change verifying positive etco2. Reported off to Dr. Silverio. Stop Time: 19:00 Intubation Reason Intubation/Diagnosis: Respiratory distress RSI: Yes 100% pre-Ox, [id number]: No Videoscope used: Yes (Ambrocio x blade) Grade View: 1 Mask Ventilation: positive Positive End Tide CO2: Yes Breath Sounds after Intubation: bilateral-equal ETT Securred @ (cm): 22 Intubated with ease: Yes Intubation Complications: no complications Post Intubation Xray-done: Yes Care turned over to: CANDELARIO Fisher CRNA Apr 28, 2018 19:15
[2018-04-28 19:32] LABS: CLARITY,URINE VERY CLOUDY; COLOR,URINE AMBER; GLUCOSE, URINE (UA) NEGATIVE (NEGATIVE); KETONES,URINE NEGATIVE (NEGATIVE); LEUKOCYTE ESTERASE ,URINE 2+ (NEGATIVE); NITRITE,URINE POSITIVE (NEGATIVE); PH,URINE 5 (5-9); PROTEIN,URINE 3+ (NEGATIVE); UROBILINOGEN,URINE 1 MG/DL (NORMAL)
[2018-04-28 19:43] LABS: AMORPHOUS SEDIMENT,UR FEW AMOR URATES /LPF; BACTERIA,URINE MODERATE /HPF
--- NOTE | 2018-04-28 19:45 | NUR ---
RECIEVED CALL FROM GILMER HAGEN WHILE WITH PT IN CT REGARDING ASSESSMENT OF LOW BP. VERBAL ORDER PER DR. MARTINEZ TO BOLUS 1L NS. THIS RN AND PROVIDER TO CT TO ASSESS PT. INITITATED 1L NS BOLUS TO RT CHEST WALL.
--- NOTE | 2018-04-28 20:00 | Diagnostic Imaging Report ---
PROCEDURE: CT head wo r/o stroke. TECHNIQUE: Multiple contiguous axial images were obtained through the brain without the use of intravenous contrast. INDICATION: Unresponsive, stroke COMPARISON: 04/19/2017 FINDINGS: No intracranial hemorrhage. No intracranial mass, mass effect, midline shift, herniation, hydrocephalus, or extra-axial fluid collection. No definite CT evidence of an acute ischemic infarction. Endotracheal tube and enteric catheter partially visualized. The orbits are unremarkable. The paranasal sinuses are clear. The calvarium and extracranial soft tissues are unremarkable IMPRESSION: No acute intracranial abnormality. Endotracheal tube and enteric catheter are partially visualized. If there remains clinical concern for underlying occult infarction, further evaluation with MRI of the brain could be obtained. Dictated by: Dictated on workstation # [id number]
[2018-04-28 20:18] LABS: AMPHETAMINE SCREEN, URINE NEGATIVE (NEGATIVE); BARBITURATE SCREEN URINE NEGATIVE (NEGATIVE); BENZODIAZEPINES SCREEN URINE POSITIVE (NEGATIVE); CANNABINOID SCREEN, URINE NEGATIVE (NEGATIVE); COCAINE SCREEN URINE NEGATIVE (NEGATIVE); METHADONE STAT NEGATIVE (NEGATIVE); METHAMPHETAMINE SCREEN URINE S NEGATIVE (NEGATIVE); OPIATE SCREEN URINE NEGATIVE (NEGATIVE); OXYCODONE STAT NEGATIVE (NEGATIVE); PROPOXYPHENE STAT NEGATIVE (NEGATIVE); TRICYCLIC ANTIDEPRESSANTS SCRE NEGATIVE (NEGATIVE)
[2018-04-28] MEDS ORDERED: cefTRIAXone FOR IV USE 1,000 MG in NS (IVPB) 50 ML IV ONE (20:30)
--- NOTE | 2018-04-28 20:34 | Diagnostic Imaging Report ---
INDICATION: Found unresponsive COMPARISON: CT from the same date. TECHNIQUE: Single radiograph of the chest dated 04/28/2018. FINDINGS: Endotracheal tube is present with the distal tip overlying the tracheal air column at the level of the clavicular heads. Enteric catheter is present with the distal tip extending into the stomach. The cardiac silhouette is enlarged. Minimal central pulmonary vascular congestion. Focal opacities are identified within the right upper and right lower lung with minimal left basilar atelectasis. No significant pleural effusion. No pneumothorax. No acute osseous abnormality. IMPRESSION: Right-sided pulmonary opacities, favored to relate to pneumonia versus contusion. Lines and tubes as above. Mild left basilar atelectasis. Cardiomegaly. Dictated by: Dictated on workstation # [id number]
--- NOTE | 2018-04-28 20:34 | Diagnostic Imaging Report ---
INDICATION: Unresponsive, possible fall. COMPARISON: CT of the chest dated January 02, 2017. TECHNIQUE: Multiple contiguous axial CT images were obtained through the cervical, thoracic and lumbar spine without the use of intravenous contrast dated 04/28/2018. Sagittal and coronal reformatted images were reviewed. FINDINGS: Examination is limited secondary to patient body habitus. In particular, the cervical spine is not well evaluated. Endotracheal tube and enteric catheter are present. Within the limits of this examination, alignment of the cervical spine is well maintained. Alignment of the atlanto occipital joint well maintained. No definite acute compression deformity within the cervical spine within the limits of this examination. No acute fracture. The paraspinal soft tissues are unremarkable. Mild apex left curvature of the thoracolumbar spine. No significant anterolisthesis or retrolisthesis. Besides endplate degenerative changes, vertebral body heights are well maintained. No acute fracture or dislocation. No destructive osseous process. No high-grade osseous central canal stenosis. No pneumothorax. Bilateral reticular opacities are present within the lungs with more dense focal consolidation within the right lower lobe and right upper lobe. The paraspinal soft tissues are otherwise unremarkable. IMPRESSION: 1. No acute osseous abnormality within the limits of this examination. 2. Right-sided pulmonary opacities, favored to relate to infiltrate such as pneumonia, though contusion could appear similar. Dictated by: Dictated on workstation # [id number]
[2018-04-28 20:55] LABS: ABG BASE EXCESS -7.5 MMOL/L (-2.5-2.5); ABG PCO2 25 MMHG (35-45); ABG PH 7.42 (7.37-7.43); ABG PO2 68 MMHG (79-93); ABG TCO2 17.1 MMOL/L (21.0-31.0)
[2018-04-28 20:57] LABS: ALLENS TEST YES-POS; INSPIRED O2 40%; VENTILATOR YES
--- NOTE | 2018-04-28 21:25 | NUR ---
[facility] RO[facility] CALLED. REPORT GIVEN TO GILMER GALLEGOS REGARDING PT STATUS AND CARE RECEIVED WHILE IN THIS ED. EL REPORTS NO FURTHER QUESTIONS OR CONCERNS.
[2018-04-28 22:05] VITALS: BP 139/72
--- NOTE | 2018-04-28 22:10 | NUR ---
2210: [facility] TO ED. PT REPORT GIVEN TO ISADORA PEREZ PELLET POST INSPECTOR. PT & SON TOOK PT BELONGINGS AND LEFT ED TO MEET EMS @ [facility]. 2215: RT IN ROOM ASSISTING WITH VENT TRANSFER. PT TRANSFERRED TO EMS CART. BP: 130/70 P:72 O2:99% VIA MECHANICAL VENTILATION RESP: 14. 2220: INITIATED 34.1ML/HR PROPOFOL INFUSION. 2226: PT DC VIA EMS CART TO AMBULANCE BAY AND LOADED INTO AMBULANCE.
--- NOTE | 2018-04-28 22:40 | NUR ---
[facility] EMT TO ED FROM AMBULANCE BAY WITH REPORT THAT PT O2 SAT DECREASING AND UNABLE TO GET BP READING. DR. MARTINEZ AND THIS RN TO AMBULANCE. UNABLE TO FEEL PERIPHERAL PULSES. 2241: EMS INITIATES CPR IN AMBULANCE.
--- NOTE | 2018-04-28 22:46 | NUR ---
2248: 1MG ATROPINE 2249: 1MG EPI 2250: PULSE CHECK BY PROVIDER. NO PERIPHERAL PULSE. CPR RESUMED. 2250: 50MEQ SODIUM BICARB, 1MG ATROPINE 225: 1MG EPI 2252: PULSE CHECK BY PROVIDER. ROSC CONFIRMED. BP: 211/117 P:135 RT PROVIDING MANUAL VENTILATION. 02: 99% 2252: PT SON CONTACTED REGARDING PT CHANGE OF STATUS AND CURRENT ROSC. 2256: FAILED IO ATTEMPT TO LT FIBIA 2258: IO ACCESS TO RT FIBIA. 45MM 2300: BP: 122/83 P:110 20/100% 2305: PT TRANSFERRED ONTO ED CART. RT @ BEDSIDE TO STABILIZE ET TUBE. 2307: CHEST XRAY 2310: PT DC VIA EMS CART FOR TRANSFER TO [facility]. 2316: GILMER GALLEGOS FROM [facility] NOTIFIED OF CHANGE IN PT CONDITION. REPORTS NO FURTHER QUESTIONS OR CONCERNS.
[2018-04-28 23:10] VITALS: BP 122/83
[2018-04-29 07:23] LABS: BILIRUBIN,URINE 1+ (NEGATIVE)
== END 2018-04-28 23:10 | disposition short-term general hospital (02) ==
LOC: EDUNIT# 17:36 → ER 17:37
DX: A41.9 Sepsis, unspecified organism (principal); R65.20 Severe sepsis without septic shock; N39.0 Urinary tract infection, site not specified; J96.00 Acute respiratory failure, unspecified whether with hypoxia or hypercapnia; R41.82 Altered mental status, unspecified; E66.01 Morbid (severe) obesity due to excess calories; J44.9 Chronic obstructive pulmonary disease, unspecified; I12.9 Hypertensive chronic kidney disease with stage 1 through stage 4 chronic kidney disease, or unspecified chronic kidney disease; N18.9 Chronic kidney disease, unspecified; E78.00 Pure hypercholesterolemia, unspecified; E03.9 Hypothyroidism, unspecified; Z68.43 Body mass index [BMI] 50.0-59.9, adult; Z88.5 Allergy status to narcotic agent; Z88.8 Allergy status to other drugs, medicaments and biological substances; W19.XXXA Unspecified fall, initial encounter
CPT/HCPCS: 31500; 36415; 36600; 51702; 70450; 71045; 72125; 72128; 72131; 80053; 80306; 80320; 80329; 81000; 82140; 82150; 82550; 82553; 82805; 82962; 83605; 83690; 83735; 83874; 83880; 84443; 84484; 85007; 85027; 85610; 85730; 87040; 87077; 87088; 87186; 87804; 92950; 93005; 93041; 94799; 96365; 99291